=== PATIENT | male | born 1945 | race Caucasian/White ===

== ENCOUNTER → 2016-05-20 | Outpatient (CLI) | payer MEDICARE, OTHER ==
[~2016-05-20] MED LIST: FLEXERIL 1010 MG/TAB PO; HCTZ 25MG TAB25 MG PO; LORTAB 5/500 501 TAB PO; NORVASC 10MG10 MG PO; ZESTRIL40 MG PO; ZOCOR 80MG80 MG PO
== END ==
LOC: COL.RAD 09:28
PROVIDERS: Psychiatry & Neurology Neurology
DX: R41.89 Other symptoms and signs involving cognitive functions and awareness (principal)

== ENCOUNTER 2017-09-04 21:59 | Inpatient (IN) | payer MEDICARE, OTHER ==
[~2017-09-04] VITALS: Ht 180.3 cm; Wt 98.9 kg
[~2017-09-04 21:59] MED LIST changes: +ASPIRIN 32325 MG/TAB PO; +B-121000 MCG PO; +COLACE 100100 MG/CAP PO; +COZAAR100 MG PO; +EXELON9.5 MG/24 TD; +FOLIC ACID 11 MG/TA1 PO; +HYGROTON 2525 MG/TAB PO; +LIPITOR 80MG80 MG PO; +LOPRESSOR 225 MG/TAB PO; +MULTI VITAMINS1 TAB PO; +PROBIOTIC ACID1 EAC3 PO; +PROBIOTIC-SUNMARK; +SEROQUEL50 MG PO; +TEGRETOL 2200 MG/TA1 PO; +THIAMINE 1100 MG/TAB PO; +TYLENOL 500MG500 MG PO; +VIAGRA100 M1 PO; +ZOLOFT 50MG50 MG PO
[2017-09-04] MEDS ORDERED: COZAAR100 MG PO (22:22)
[2017-09-04] MEDS ORDERED: CAMPRAL333 M1 (22:23)
[2017-09-04] MEDS ORDERED: REVIA 50MG TABL50 MG PO (22:23)
[2017-09-04 22:51] LABS: COLLECTION METHOD CLEAN CATCH
[2017-09-04 22:57] LABS: MUCOUS Present /lpf; PH 5 (5-8); SQUAMOUS EPITHELIAL None Seen /hpf; URINE APPEARANCE Clear; URINE BACTERIA None Seen /hpf; URINE BILIRUBIN Negative (NEGATIVE); URINE BLOOD Negative (NEGATIVE); URINE COLOR Yellow; URINE GLUCOSE Negative (NEGATIVE); URINE KETONE 1+ (NEGATIVE); URINE LEUKOCYTE ESTERASE Negative (NEGATIVE); URINE NITRATE Negative (NEGATIVE); URINE PROTEIN(semi-quant) Negative (NEGATIVE); URINE RBC 0-2 /hpf
[2017-09-04 22:58] LABS: BASO % 0.2 % (0.0-2.0); EOS % 0.5 % (0-4.0); GRAN # 5.9 (1.4-6.5); HEMATOCRIT 38.7 % (42.0-52.0); HEMOGLOBIN 13.1 g/dl (13.5-18.0); LYMPH # 0.2 (1.2-3.4); LYMPH % 3.2 % (20.0-51.0); MEAN CELL VOLUME 92 fl (80.0-100.0); MEAN CORPUSCULAR HEMOGLOBIN 31 pg (27.0-31.0); MEAN CORPUSCULAR HGB CONC 34 g/dl (33.0-37.0); MEAN PLATELET VOLUME 9.1 fl (7.4-10.4); MONO # 0.4 (0.1-0.6); MONO % 5.9 % (1.7-9.3); PLATELET COUNT 124 K/mm3 (130-400); RED BLOOD COUNT 4.22 M/mm3 (4.20-5.60); REDCELL DISTRIBUTION WIDTH-CV 12.7 % (11.5-14.5)
[2017-09-04 23:08] LABS: ALBUMIN 4.2 gm/dL (3.5-5.0); BILIRUBIN,TOTAL 0.5 mg/dL (0.0-1.0); CREATININE, serum 0.83 mg/dL (0.66-1.25); POTASSIUM 4.2 mmol/L (3.4-5.0); TOTAL PROTEIN 7.7 gm/dL (6.4-8.2)
[2017-09-05 04:15] VITALS: BP 185/99; PULSE 94; TEMP 97.8
[2017-09-05 04:17] VITALS: BP 185/99; PULSE 94; TEMP 97.8
[2017-09-05 09:27] VITALS: BP 156/78; PULSE 93; TEMP 98.1
[2017-09-05 11:53] VITALS: BP 149/69; PULSE 97; TEMP 98.2
[2017-09-05 16:20] VITALS: BP 104/81; BP 151/79; PULSE 72; PULSE 96; TEMP 97.9; TEMP 98
[2017-09-05 19:39] VITALS: BP 151/79; PULSE 91; TEMP 98.7
[2017-09-06] VITALS (12 sets, daily range): BP systolic 130–161; BP diastolic 65–83; PULSE 79–93; TEMP 97.3–98.4
[2017-09-06 07:22] LABS: BASO % 0.2 % (0.0-2.0); GRAN # 3.3 (1.4-6.5); GRAN % 81.2 % (42.2-75.2); LYMPH # 0.3 (1.2-3.4); MEAN CELL VOLUME 92 fl (80.0-100.0); MEAN CORPUSCULAR HGB CONC 33 g/dl (33.0-37.0); MEAN PLATELET VOLUME 9.4 fl (7.4-10.4); MONO # 0.4 (0.1-0.6); MONO % 10.4 % (1.7-9.3); PLATELET COUNT 108 K/mm3 (130-400); RED BLOOD COUNT 3.81 M/mm3 (4.20-5.60); REDCELL DISTRIBUTION WIDTH-CV 12.9 % (11.5-14.5)
[2017-09-06 07:25] LABS: HEMATOCRIT 35.2 % (42.0-52.0); HEMOGLOBIN 11.7 g/dl (13.5-18.0); MEAN CORPUSCULAR HEMOGLOBIN 31 pg (27.0-31.0)
[2017-09-06 07:36] LABS: CALCIUM 8.6 mg/dL (8.4-10.2); CREATININE, serum 0.67 mg/dL (0.66-1.25); POTASSIUM 3.8 mmol/L (3.4-5.0)
[2017-09-07] VITALS (15 sets, daily range): BP systolic 94–187; BP diastolic 50–84; PULSE 77–105; TEMP 97.6–98.8
[2017-09-07 06:34] LABS: BASO % 0.2 % (0.0-2.0); EOS # 0.1 (0.0-0.7); EOS % 1.5 % (0-4.0); GRAN # 3.7 (1.4-6.5); GRAN % 81.4 % (42.2-75.2); HEMOGLOBIN 11.5 g/dl (13.5-18.0); LYMPH # 0.4 (1.2-3.4); MEAN CELL VOLUME 94 fl (80.0-100.0); MEAN CORPUSCULAR HEMOGLOBIN 31 pg (27.0-31.0); MEAN CORPUSCULAR HGB CONC 33 g/dl (33.0-37.0); MEAN PLATELET VOLUME 9.5 fl (7.4-10.4); MONO # 0.4 (0.1-0.6); MONO % 8.7 % (1.7-9.3); PLATELET COUNT 109 K/mm3 (130-400); RED BLOOD COUNT 3.72 M/mm3 (4.20-5.60); REDCELL DISTRIBUTION WIDTH-CV 12.7 % (11.5-14.5)
[2017-09-07 06:38] LABS: INR 1.2 (0.8-3.0); PROTHROMBIN TIME 13.7 SECONDS (9.7-12.8)
[2017-09-07 06:39] LABS: ALBUMIN 3.4 gm/dL (3.5-5.0); BILIRUBIN,TOTAL 0.5 mg/dL (0.0-1.0); CALCIUM 8.8 mg/dL (8.4-10.2); CREATININE, serum 0.65 mg/dL (0.66-1.25); POTASSIUM 3.4 mmol/L (3.4-5.0); TOTAL PROTEIN 6.5 gm/dL (6.4-8.2)
[2017-09-08] VITALS (20 sets, daily range): BP systolic 106–182; BP diastolic 52–102; PULSE 68–103; TEMP 98.1–98.7
[2017-09-09] VITALS (11 sets, daily range): BP systolic 114–152; BP diastolic 47–83; PULSE 63–87; TEMP 96.8–98.6
[2017-09-09 06:56] LABS: BASO % 0.3 % (0.0-2.0); EOS # 0.1 (0.0-0.7); GRAN # 2.8 (1.4-6.5); GRAN % 76.8 % (42.2-75.2); HEMOGLOBIN 11.8 g/dl (13.5-18.0); LYMPH # 0.3 (1.2-3.4); LYMPH % 8.6 % (20.0-51.0); MEAN CELL VOLUME 93 fl (80.0-100.0); MEAN CORPUSCULAR HEMOGLOBIN 31 pg (27.0-31.0); MEAN CORPUSCULAR HGB CONC 33 g/dl (33.0-37.0); MEAN PLATELET VOLUME 9.4 fl (7.4-10.4); MONO # 0.4 (0.1-0.6); PLATELET COUNT 122 K/mm3 (130-400); RED BLOOD COUNT 3.82 M/mm3 (4.20-5.60); REDCELL DISTRIBUTION WIDTH-CV 12.6 % (11.5-14.5)
[2017-09-09 07:05] LABS: HEMATOCRIT 35.5 % (42.0-52.0)
[2017-09-09 07:10] LABS: CALCIUM 8.9 mg/dL (8.4-10.2); CREATININE, serum 0.65 mg/dL (0.66-1.25); POTASSIUM 3.5 mmol/L (3.4-5.0)
[2017-09-10 07:27] VITALS: BP 126/78; PULSE 75; TEMP 98.6
[2017-09-10 11:09] VITALS: BP 178/72; PULSE 78; TEMP 98.6
[2017-09-10] MEDS ORDERED: FLEXERIL 1010 MG/TAB PO (16:08)
[2017-09-10] MEDS ORDERED: LIDODERM 5% PATC1 EA TP (16:09)
[2017-09-10] MEDS ORDERED: OXYCONTIN 10MG10 MG PO (16:10)
[2017-09-10] MEDS ORDERED: NORCO 325 MG-51 TAB PO (16:10)
[2017-09-10 20:00] VITALS: BP 143/82; PULSE 84; TEMP 97.2
[2017-09-11 04:00] VITALS: BP 140/79; PULSE 85; TEMP 96.7
[2017-09-11 08:03] VITALS: BP 150/83; PULSE 81; TEMP 98.3
== END 2017-09-11 12:45 | disposition home health service (06) | DRG 478 ==
LOC: COL.ER → MEDICAL 09-05 03:24
PROVIDERS: Emergency Medicine; Internal Medicine Pulmonary Disease; Nurse Practitioner; Physician Assistant
PROC: 0PB43ZX Excision of Thoracic Vertebra, Percutaneous Approach, Diagnostic (ICD-10-PCS; principal; 2017-09-08)
DX: C79.51 Secondary malignant neoplasm of bone (principal); C78.01 Secondary malignant neoplasm of right lung; C78.7 Secondary malignant neoplasm of liver and intrahepatic bile duct; F10.239 Alcohol dependence with withdrawal, unspecified; C78.02 Secondary malignant neoplasm of left lung; C80.1 Malignant (primary) neoplasm, unspecified; I10 Essential (primary) hypertension; F03.90 Unspecified dementia, unspecified severity, without behavioral disturbance, psychotic disturbance, mood disturbance, and anxiety; I25.10 Atherosclerotic heart disease of native coronary artery without angina pectoris; Z87.891 Personal history of nicotine dependence; G50.0 Trigeminal neuralgia
CPT/HCPCS: OP; 99222-AI; 99232-AI; 99239; A9585; G0103; G0378; G8978-GP; G8979-GP; G8987-GO; G8988-GO; J1170; J1630; J1650; J2060; J2250; J2270; J2360; J2405; J3010; J7030; Q9967

== ENCOUNTER 2017-09-17 17:54 | Inpatient (IN) | payer MEDICARE, OTHER ==
[~2017-09-17] VITALS: Ht 180.3 cm; Wt 94.3 kg
[~2017-09-17 17:54] MED LIST changes: +CAMPRAL333 M1; +LIDODERM 5% PATC1 EA TP; +NORCO 325 MG-51 TAB PO; +OXYCONTIN 10MG10 MG PO; +REVIA 50MG TABL50 MG PO
[2017-09-17 18:44] LABS: BASO % 0.2 % (0.0-2.0); EOS # 0.1 (0.0-0.7); EOS % 1.6 % (0-4.0); GRAN # 4.5 (1.4-6.5); HEMATOCRIT 37.5 % (42.0-52.0); HEMOGLOBIN 12.6 g/dl (13.5-18.0); LYMPH # 0.4 (1.2-3.4); LYMPH % 6.8 % (20.0-51.0); MEAN CELL VOLUME 91 fl (80.0-100.0); MEAN CORPUSCULAR HEMOGLOBIN 31 pg (27.0-31.0); MEAN CORPUSCULAR HGB CONC 34 g/dl (33.0-37.0); MEAN PLATELET VOLUME 9.1 fl (7.4-10.4); MONO # 0.5 (0.1-0.6); MONO % 9.2 % (1.7-9.3); PLATELET COUNT 143 K/mm3 (130-400); RED BLOOD COUNT 4.12 M/mm3 (4.20-5.60); REDCELL DISTRIBUTION WIDTH-CV 12.5 % (11.5-14.5)
[2017-09-17 18:52] LABS: ALANINE AMINOTRANSFERASE 32 U/L (21-72); ALBUMIN 3.7 gm/dL (3.5-5.0); ALKALINE PHOSPHATASE 119 U/L (50-136); ANION GAP 12 mmol/L (7-16); AST,SGOT 32 U/L (15-37); BILIRUBIN,TOTAL 0.5 mg/dL (0.0-1.0); BLOOD UREA NITROGEN 12 mg/dL (9-20); C-REACTIVE PROTEIN 5.8 mg/dL (0.0-0.9); CALCIUM 9.1 mg/dL (8.4-10.2); CARBON DIOXIDE 26 mmol/L (22-30); CHLORIDE 97 mmol/L (98-107); CREATININE, serum 0.62 mg/dL (0.66-1.25); GLUCOSE 117 mg/dL (74-106); MAGNESIUM 1.7 mg/dL (1.6-2.3); POTASSIUM 3.7 mmol/L (3.4-5.0); SODIUM 136 mmol/L (137-145); TOTAL PROTEIN 7.1 gm/dL (6.4-8.2)
[2017-09-17 18:56] LABS: ALCOHOL(ethanol),MEDICAL < 10 mg/dL
[2017-09-17 20:12] LABS: COLLECTION METHOD CLEAN CATCH
[2017-09-17 20:26] LABS: PH 6 (5-8); SQUAMOUS EPITHELIAL None Seen /hpf; URINE APPEARANCE Clear; URINE BACTERIA None Seen /hpf; URINE BILIRUBIN Negative (NEGATIVE); URINE BLOOD Negative (NEGATIVE); URINE COLOR Yellow; URINE GLUCOSE Negative (NEGATIVE); URINE KETONE Trace (NEGATIVE); URINE LEUKOCYTE ESTERASE Negative (NEGATIVE); URINE NITRATE Negative (NEGATIVE); URINE PROTEIN(semi-quant) 1+ (NEGATIVE); URINE UROBILINOGEN >=4.0 mg/dL (NEGATIVE)
[2017-09-17] MEDS ORDERED: KLONOPIN 0.5MG0.5 MG PO (22:11)
[2017-09-17] MEDS ORDERED: FENTANYL 12MCG TD (22:15)
[2017-09-17] MEDS ORDERED: PERCOCET 325 MG1 TAB PO (22:18)
[2017-09-17 23:11] VITALS: BP 151/98; PULSE 104; TEMP 98.4
[2017-09-17 23:12] VITALS: BP 151/98; PULSE 104; TEMP 98.4
[2017-09-18] VITALS (7 sets, daily range): BP systolic 123–173; BP diastolic 68–94; PULSE 82–113; TEMP 97.8–98.4
[2017-09-18] MEDS ORDERED: LIPITOR 80MG80 MG PO (00:21)
[2017-09-18] MEDS ORDERED: FENTANYL 50MCG TD (00:30)
[2017-09-18 07:00] LABS: BASO % 0.2 % (0.0-2.0); EOS # 0.1 (0.0-0.7); EOS % 1.4 % (0-4.0); GRAN # 5.2 (1.4-6.5); GRAN % 83.6 % (42.2-75.2); HEMATOCRIT 36.5 % (42.0-52.0); HEMOGLOBIN 12.2 g/dl (13.5-18.0); LYMPH # 0.4 (1.2-3.4); LYMPH % 5.7 % (20.0-51.0); MEAN CELL VOLUME 92 fl (80.0-100.0); MEAN CORPUSCULAR HEMOGLOBIN 31 pg (27.0-31.0); MEAN CORPUSCULAR HGB CONC 33 g/dl (33.0-37.0); MEAN PLATELET VOLUME 9.1 fl (7.4-10.4); MONO # 0.6 (0.1-0.6); MONO % 8.8 % (1.7-9.3); PLATELET COUNT 150 K/mm3 (130-400); RED BLOOD COUNT 3.98 M/mm3 (4.20-5.60); REDCELL DISTRIBUTION WIDTH-CV 12.6 % (11.5-14.5)
[2017-09-18 07:15] LABS: CALCIUM 8.8 mg/dL (8.4-10.2); CREATININE, serum 0.6 mg/dL (0.66-1.25); POTASSIUM 3.7 mmol/L (3.4-5.0)
[2017-09-18 09:58] LABS: INR 1.1 (0.8-3.0); PROTHROMBIN TIME 12.7 SECONDS (9.7-12.8)
[2017-09-19] VITALS (684 sets, daily range): BP systolic 70–144; BP diastolic 49–99; PULSE 89–137; TEMP 98.2–99; O2SAT 73–100
[2017-09-19 04:41] LABS: ALBUMIN 3.5 gm/dL (3.5-5.0); BILIRUBIN,TOTAL 0.6 mg/dL (0.0-1.0); CALCIUM 8.7 mg/dL (8.4-10.2); CREATININE, serum 1.2 mg/dL (0.66-1.25); POTASSIUM 4.3 mmol/L (3.4-5.0); TOTAL PROTEIN 6.7 gm/dL (6.4-8.2)
[2017-09-19 04:44] LABS: BASO % 0.1 % (0.0-2.0); EOS % 0.4 % (0-4.0); GRAN # 7.5 (1.4-6.5); GRAN % 83.2 % (42.2-75.2); HEMATOCRIT 38.7 % (42.0-52.0); HEMOGLOBIN 12.6 g/dl (13.5-18.0); LYMPH # 0.8 (1.2-3.4); LYMPH % 8.7 % (20.0-51.0); MEAN CELL VOLUME 94 fl (80.0-100.0); MEAN CORPUSCULAR HEMOGLOBIN 31 pg (27.0-31.0); MEAN CORPUSCULAR HGB CONC 33 g/dl (33.0-37.0); MEAN PLATELET VOLUME 9.1 fl (7.4-10.4); MONO # 0.6 (0.1-0.6); MONO % 6.2 % (1.7-9.3); PLATELET COUNT 210 K/mm3 (130-400); RED BLOOD COUNT 4.11 M/mm3 (4.20-5.60); REDCELL DISTRIBUTION WIDTH-CV 12.7 % (11.5-14.5)
[2017-09-19 04:48] LABS: PROTHROMBIN TIME 11.3 SECONDS (9.7-12.8)
[2017-09-19 04:49] LABS: TROPONIN-I 0.243 ng/mL (0.000-0.034)
[2017-09-19 05:16] LABS: ARTERIAL BLD GAS O2 SATURATION 99.2 % (92-100); ARTERIAL BLD GAS TCO2 CT 27.3; ARTERIAL BLOOD GAS HCO3 25.7 meq/L (22-26); ARTERIAL BLOOD GAS PCO2 51.4 mmHg (35-45); ARTERIAL BLOOD GAS pH 7.32 (7.35-7.45)
[2017-09-19 05:17] LABS: ARTERIAL BLOOD GAS PO2 282.9 mmHg (80-100)
[2017-09-19 10:37] LABS: ARTERIAL BLD GAS O2 SATURATION 98.2 % (92-100); ARTERIAL BLD GAS TCO2 CT 26.2; ARTERIAL BLOOD GAS BASE EXCESS 1.4 (-2-2); ARTERIAL BLOOD GAS HCO3 25.1 meq/L (22-26); ARTERIAL BLOOD GAS PCO2 36.7 mmHg (35-45); ARTERIAL BLOOD GAS pH 7.45 (7.35-7.45)
[2017-09-19 10:38] LABS: ARTERIAL BLOOD GAS PO2 126.8 mmHg (80-100)
[2017-09-19 11:07] LABS: COLLECTION METHOD CATHETER
[2017-09-19 11:14] LABS: PH 5 (5-8); SQUAMOUS EPITHELIAL None Seen /hpf; URINE APPEARANCE Clear; URINE BACTERIA None Seen /hpf; URINE BILIRUBIN Negative (NEGATIVE); URINE BLOOD Negative (NEGATIVE); URINE COLOR Yellow; URINE GLUCOSE Negative (NEGATIVE); URINE KETONE Negative (NEGATIVE); URINE LEUKOCYTE ESTERASE Negative (NEGATIVE); URINE NITRATE Negative (NEGATIVE); URINE PROTEIN(semi-quant) Negative (NEGATIVE)
[2017-09-19 16:23] LABS: BASO % 0.1 % (0.0-2.0); GRAN # 6.4 (1.4-6.5); GRAN % 91.2 % (42.2-75.2); LYMPH # 0.2 (1.2-3.4); LYMPH % 2.9 % (20.0-51.0); MEAN CELL VOLUME 92 fl (80.0-100.0); MEAN CORPUSCULAR HEMOGLOBIN 31 pg (27.0-31.0); MEAN CORPUSCULAR HGB CONC 33 g/dl (33.0-37.0); MEAN PLATELET VOLUME 8.9 fl (7.4-10.4); MONO # 0.4 (0.1-0.6); MONO % 5.7 % (1.7-9.3); PLATELET COUNT 162 K/mm3 (130-400); RED BLOOD COUNT 3.61 M/mm3 (4.20-5.60); REDCELL DISTRIBUTION WIDTH-CV 12.9 % (11.5-14.5)
[2017-09-19 16:24] LABS: HEMATOCRIT 33.2 % (42.0-52.0)
[2017-09-19 16:33] LABS: CALCIUM 8.2 mg/dL (8.4-10.2); CREATININE, serum 0.67 mg/dL (0.66-1.25); MAGNESIUM 1.7 mg/dL (1.6-2.3); PHOSPHOROUS 3.3 mg/dL (2.5-4.5); POTASSIUM 3.8 mmol/L (3.4-5.0)
[2017-09-19 17:04] LABS: ARTERIAL BLD GAS O2 SATURATION 96.8 % (92-100); ARTERIAL BLD GAS TCO2 CT 25.6; ARTERIAL BLOOD GAS BASE EXCESS 0.2 (-2-2); ARTERIAL BLOOD GAS HCO3 24.4 meq/L (22-26); ARTERIAL BLOOD GAS PCO2 38.1 mmHg (35-45); ARTERIAL BLOOD GAS PO2 92.4 mmHg (80-100); ARTERIAL BLOOD GAS pH 7.43 (7.35-7.45)
[2017-09-20] VITALS (432 sets, daily range): BP systolic 119–179; BP diastolic 73–100; PULSE 94–109; TEMP 98–99; O2SAT 67–94
[2017-09-20 05:45] LABS: BASO % 0.2 % (0.0-2.0); EOS # 0.1 (0.0-0.7); EOS % 1.5 % (0-4.0); GRAN # 3.7 (1.4-6.5); GRAN % 81.7 % (42.2-75.2); LYMPH # 0.4 (1.2-3.4); LYMPH % 8.5 % (20.0-51.0); MEAN CELL VOLUME 93 fl (80.0-100.0); MEAN CORPUSCULAR HGB CONC 33 g/dl (33.0-37.0); MEAN PLATELET VOLUME 9.3 fl (7.4-10.4); MONO # 0.4 (0.1-0.6); MONO % 7.9 % (1.7-9.3); PLATELET COUNT 122 K/mm3 (130-400); RED BLOOD COUNT 3.26 M/mm3 (4.20-5.60); REDCELL DISTRIBUTION WIDTH-CV 13.1 % (11.5-14.5)
[2017-09-20 05:46] LABS: INR 1.1 (0.8-3.0); PROTHROMBIN TIME 12.8 SECONDS (9.7-12.8)
[2017-09-20 05:50] LABS: HEMATOCRIT 30.4 % (42.0-52.0); HEMOGLOBIN 9.9 g/dl (13.5-18.0); MEAN CORPUSCULAR HEMOGLOBIN 30 pg (27.0-31.0)
[2017-09-20 05:53] LABS: ALBUMIN 2.6 gm/dL (3.5-5.0); BILIRUBIN,TOTAL 0.2 mg/dL (0.0-1.0); CALCIUM 8.1 mg/dL (8.4-10.2); CREATININE, serum 0.68 mg/dL (0.66-1.25); POTASSIUM 3.7 mmol/L (3.4-5.0); TOTAL PROTEIN 5.4 gm/dL (6.4-8.2)
== END 2017-09-20 17:38 | disposition hospice, inpatient (51) | DRG 515 ==
LOC: COL.ER 17:54 → MEDICAL 22:39 → ICU 09-19 04:21
PROVIDERS: Emergency Medicine; Internal Medicine Pulmonary Disease; Nurse Practitioner Family; Radiology Diagnostic Radiology
PROC: 07B23ZX Excision of Left Neck Lymphatic, Percutaneous Approach, Diagnostic (ICD-10-PCS; principal; 2017-09-18)
PROC: 0BH17EZ Insertion of Endotracheal Airway into Trachea, Via Natural or Artificial Opening (ICD-10-PCS; 2017-09-19)
PROC: 5A1935Z Respiratory Ventilation, Less than 24 Consecutive Hours (ICD-10-PCS; 2017-09-19)
DX: C79.51 Secondary malignant neoplasm of bone (principal); J18.9 Pneumonia, unspecified organism; I46.9 Cardiac arrest, cause unspecified; M48.54XA Collapsed vertebra, not elsewhere classified, thoracic region, initial encounter for fracture; C78.7 Secondary malignant neoplasm of liver and intrahepatic bile duct; Z51.5 Encounter for palliative care; Z66 Do not resuscitate; C78.01 Secondary malignant neoplasm of right lung; C78.02 Secondary malignant neoplasm of left lung; C77.0 Secondary and unspecified malignant neoplasm of lymph nodes of head, face and neck; J90 Pleural effusion, not elsewhere classified; E87.2 Acidosis; I25.10 Atherosclerotic heart disease of native coronary artery without angina pectoris; I10 Essential (primary) hypertension; F03.90 Unspecified dementia, unspecified severity, without behavioral disturbance, psychotic disturbance, mood disturbance, and anxiety; C80.1 Malignant (primary) neoplasm, unspecified; Z87.891 Personal history of nicotine dependence
CPT/HCPCS: 99222-AI; 99233-AI; 99239; G0378; J0171; J0692; J1170; J1650; J1720; J1956; J2060; J2270; J2405; J2543; J2704; J3010; J3370; J7030; J7050; J7060; Q9967